=== PATIENT | male | born 1990 | race African-American/Black ===

== ENCOUNTER 2016-03-22 00:17 | Emergency (ER) | payer SELFPAY ==
[2016-03-22 00:26] VITALS: BP 156/79
--- NOTE | 2016-03-22 00:43 | ER Document Report ---
ED ENT - General Chief Complaint: Ear Pain Stated Complaint: EAR PAIN Time seen by provider: 00:43 Mode of Arrival: Ambulatory Information source: Patient Notes: 25-year-old male presents to ED for pain in his left ear after trying to clean his ear with a Q-tip. TRAVEL OUTSIDE OF THE [place] IN LAST 30 DAYS: No - HPI Patient complains to provider of: Ear problem Onset: Yesterday Onset/Duration: Sudden Quality of pain: Achy Severity: Mild Pain Level: 1 Location of pain: Ears Associated symptoms: Ear pain Similar symptoms previously: Yes Recently seen / treated by doctor: No - Related Data Allergies/Adverse Reactions: No Known Allergies Allergy (Verified 02/07/16 08:16) Past Medical History - General Information source: Patient - Social History Smoking Status: Current Every Day Smoker Cigarette use (# per day): Yes - 6 cigarettes a day Chew tobacco use (# tins/day): No Smoking Education Provided: Yes - less than a minute Frequency of alcohol use: Rare Drug Abuse: None Occupation: [employer] Lives with: Friend Family History: DM, Hypertension. denies: Arthritis, CAD, COPD, CVA, Hyperlipidemia, Malignancy, Thyroid Disfunction Patient has suicidal ideation: No Patient has homicidal ideation: No - Past Medical History Cardiac Medical History: Reports: None Pulmonary Medical History: Reports: Hx Asthma EENT Medical History: Reports: None Neurological Medical History: Reports: None Endocrine Medical History: Reports: None Renal/ Medical History: Reports: None Malignancy Medical History: Reports None GI Medical History: Reports: None Musculoskeltal Medical History: Reports None Skin Medical History: Reports None Psychiatric Medical History: Reports: None Traumatic Medical History: Reports: None Infectious Medical History: Reports: None Surgical Hx: Negative Past Surgical History: Reports: None - Immunizations Immunizations up to date: Yes Hx Diphtheria, Pertussis, Tetanus Vaccination: No Review of Systems - Review of Systems Constitutional: No symptoms reported EENT: Eye pain Cardiovascular: No symptoms reported Respiratory: No symptoms reported Gastrointestinal: No symptoms reported Genitourinary: No symptoms reported Male Genitourinary: No symptoms reported Musculoskeletal: No symptoms reported Skin: No symptoms reported Hematologic/Lymphatic: No symptoms reported Neurological/Psychological: No symptoms reported Physical Exam - Vital signs Vitals: Temp Pulse Resp BP Pulse Ox 98.8 F 67 16 156/79 H 97 03/22/16 00:25 03/22/16 00:25 03/22/16 00:25 03/22/16 00:25 03/22/16 00:25 Interpretation: Normal - General General appearance: Appears well, Alert - HEENT Head: Normocephalic, Atraumatic Eyes: Normal Pupils: PERRL Ears: Normal External canal: Cerumen impaction Tympanic membrane: Normal Sinus: Normal Nasal: Normal Mouth/Lips: Normal Mucous membranes: Normal Pharynx: Normal Neck: Normal - Respiratory Respiratory status: No respiratory distress Chest status: Nontender Breath sounds: Normal Chest palpation: Normal - Cardiovascular Rhythm: Regular Heart sounds: Normal auscultation Murmur: No - Abdominal Inspection: Normal Distension: No distension Bowel sounds: Normal Tenderness: Nontender Organomegaly: No organomegaly - Back Back: Normal, Nontender - Extremities General upper extremity: Normal inspection, Nontender, Normal color, Normal ROM , Normal temperature General lower extremity: Normal inspection, Nontender, Normal color, Normal ROM , Normal temperature, Normal weight bearing. No: Herson's sign - Neurological Neuro grossly intact: Yes Cognition: Normal Orientation: AAOx4 [place] Coma Scale Eye Opening: Spontaneous [place] Coma Scale Verbal: Oriented [place] Coma Scale Motor: Obeys Commands [place] Coma Scale Total: 15 Speech: Normal Motor strength normal: LUE, RUE, LLE, RLE Sensory: Normal - Psychological Associated symptoms: Normal affect, Normal mood - Skin Skin Temperature: Warm Skin Moisture: Dry Skin Color: Normal Course - Re-evaluation Re-evalutation: 03/22/16 00:47 Wax removed from left ear enough for him to be able to hear. Patient given instructions on removal of wax with peroxide and water. Patient provided was irritable syringe. Patient struck to follow-up with primary doctor for any further concerns or he may return to the emergency room. - Vital Signs Vital signs: Temp Pulse Resp BP Pulse Ox 98.8 F 67 16 156/79 H 97 03/22/16 00:25 03/22/16 00:25 03/22/16 00:25 03/22/16 00:25 03/22/16 00:25 Discharge - Discharge Clinical Impression: Impacted cerumen of left ear Condition: Stable Disposition: HOME, SELF-CARE Instructions: Family Physicians / Practices Additional Instructions: Cerumen Impaction The physician found a severe buildup of earwax in your ear canal, called a cerumen impaction. A large plug of wax can cause earache, decreased hearing, or itching. It can even lead to infection of the outer ear. An impaction of earwax can be removed by the physician using special instruments, or can be irrigated out using a stream of water (often a little of both is required). Some less severe impactions are removed using ear drops that dissolve wax. In the future, don't get soap in your ear canal. Soap doesn't remove wax - - it simply hardens it in place. Don't use cotton swabs. These just push the wax into large clumps, where it doesn't flow out normally. Dust and smoke also contribute to wax buildup. Earwax softening drops are available without prescription, and can be used periodically. Contact the doctor if you develop decreased hearing, earache, drainage from the ear, or severe headache. Mix half peroxide half water, use a bulb syringe fill ear canal with solution. Wait 15 minutes then flushed out with warm water. FOLLOW-UP CARE: If you have been referred to a physician for follow-up care, call the physician s office for an appointment as you were instructed or within the next two days. If you experience worsening or a significant change in your symptoms, notify the physician immediately or return to the Emergency Department at any time for re-evaluation. Forms: Elevated Blood Pressure, Smoking Cessation Education
== END 2016-03-22 00:50 | disposition home or self-care (01) ==
LOC: ER 00:17
DX: H61.22 Impacted cerumen, left ear (principal); H92.02 Otalgia, left ear; H57.10 Ocular pain, unspecified eye; F17.210 Nicotine dependence, cigarettes, uncomplicated; Z71.6 Tobacco abuse counseling
CPT/HCPCS: 99282

== ENCOUNTER 2016-03-22 11:33 | Emergency (ER) | payer SELFPAY ==
[2016-03-22] MEDS ORDERED: IBUPROFEN 800 MG TABLET PO ONE (11:38)
[2016-03-22 11:39] VITALS: BP 167/104
--- NOTE | 2016-03-22 11:39 | ER Document Report ---
ED Medical Screen (RME) - General Stated Complaint: FACE SWELLING Time seen by provider: 11:36 Mode of Arrival: Ambulatory Information source: Patient TRAVEL OUTSIDE OF THE [place] IN LAST 30 DAYS: No - HPI Patient complains to provider of: RIGHT FACIAL SWELLING Onset: Yesterday Onset/Duration: Sudden Context: HAS DENTAL PROBLEMS AND HAS NOT BEEN ABLE TO SEE DENTIST. Quality of pain: Throbbing Severity: Moderate Pain Level: 4 Associated Symptoms: None Exacerbated by: Food Relieved by: Denies Similar symptoms previously: Yes Recently seen / treated by doctor: No - Related Data Smoking: Cigarettes Frequency of alcohol use: None Drug Abuse: None Pertinent History: ASTHMA Allergies/Adverse Reactions: No Known Allergies Allergy (Verified 03/22/16 11:36) Past Medical History Pulmonary Medical History: Reports: Hx Asthma Renal/ Medical History: Denies: Hx Peritoneal Dialysis - Immunizations Immunizations up to date: Yes Hx Diphtheria, Pertussis, Tetanus Vaccination: No
--- NOTE | 2016-03-22 12:10 | ER Document Report ---
ED Oral Problem - General Chief Complaint: Toothache Stated Complaint: FACE SWELLING Time seen by provider: 12:05 Mode of Arrival: Ambulatory Information source: Patient Notes: This is a 25-year-old man with a history of dental caries who presents to the emergency room with swelling of the right lower jaw. Patient denies fever but does state his Pain in the area. He denies any difficulty swallowing or difficulty breathing. TRAVEL OUTSIDE OF THE [place] IN LAST 30 DAYS: No - HPI Patient complains to provider of: Swelling of jaw Onset: Last week Onset: Gradual Quality of pain: No pain Severity: None Pain Level: Denies Context: Fractured tooth Associated symptoms: denies: Cough, Earache, Fever Worsened by: Heat Similar symptoms previously: Yes Recently seen / treated by doctor/dentist: No - Related Data Allergies/Adverse Reactions: No Known Allergies Allergy (Verified 03/22/16 11:36) Past Medical History - General Information source: Patient - Social History Smoking Status: Current Every Day Smoker Chew tobacco use (# tins/day): No Frequency of alcohol use: None Drug Abuse: None Lives with: Family Family History: DM, Hypertension. denies: Arthritis, CAD, COPD, CVA, Hyperlipidemia, Malignancy, Thyroid Disfunction Patient has suicidal ideation: No Patient has homicidal ideation: No - Medical History Medical History: Negative Pulmonary Medical History: Reports: Hx Asthma Renal/ Medical History: Denies: Hx Peritoneal Dialysis Surgical Hx: Negative - Immunizations Immunizations up to date: Yes Hx Diphtheria, Pertussis, Tetanus Vaccination: No Review of Systems - Review of Systems Notes: Review of systems: Constitutional: Denies fever, chills. EENT: Positive for right lower teeth decay. Right mandibular swelling. Denies ear pain, sinus tenderness, throat pain, throat swelling. Cardiovascular: Denies chest pain, palpitations, dyspnea or edema. Respiratory: Denies wheezing, cough, hemoptysis. Abdomen: Denies abdominal pain, nausea, vomiting, diarrhea. Denies BRBPR or melena. Genitourinary: Denies dysuria, pyuria, hematuria, flank pain. Musculoskeletal: denies joint pain or swelling, denies back pain. Neurologic: Denies headache, photophobia, neck stiffness, weakness. Denies loss of bowel or bladder function. Denies saddle anesthesia. Skin: Denies rash, lesions. Physical Exam - Vital signs Vitals: Temp Pulse Resp BP Pulse Ox 97.5 F 59 L 16 167/104 H 97 03/22/16 11:38 03/22/16 11:38 03/22/16 11:38 03/22/16 11:38 03/22/16 11:38 Notes: Physical exam: GENERAL: 25-year-old man, alert and oriented 3, no acute distress. HEAD: Atraumatic, normocephalic. EYES: Pupils equal round and reactive to light, extraocular movements intact, sclera anicteric, conjunctiva are normal. ENT: TMs normal, nares patent, oropharynx clear without exudates. No trismus. He does have right lower dental caries with tenderness over the involved tooth. He does have some swelling over the right mandible. There is no trismus. Moist mucous membranes. No elevation of the tissues underneath the tongue. NECK: Normal range of motion, supple without lymphadenopathy, no stridor, no tenderness or induration or swelling in the submental spaces her around the neck. LUNGS: Breath sounds clear to auscultation bilaterally and equal. No wheezes rales or rhonchi. HEART: Regular rate and rhythm without murmurs, rubs or gallops. ABDOMEN: Soft, normoactive bowel sounds. No tenderness to palpation. No guarding, no rebound. No masses appreciated. EXTREMITIES: Normal range of motion, no pitting or edema. No clubbing or cyanosis. NEUROLOGICAL: Cranial nerves II through XII grossly intact. Normal speech, normal gait. PSYCH: Normal mood, normal affect. SKIN: Warm, Dry, normal turgor, no rashes or lesions noted. Course - Vital Signs Vital signs: Temp Pulse Resp BP Pulse Ox 97.5 F 59 L 16 167/104 H 97 03/22/16 11:38 03/22/16 11:38 03/22/16 11:38 03/22/16 11:38 03/22/16 11:38 Discharge - Discharge Clinical Impression: Dental caries Condition: Stable Disposition: HOME, SELF-CARE Instructions: Penicillin V K ([facility]), Oral Narcotic Medication ([facility]) Additional Instructions: Recommendations: Take the antibiotics as prescribed. Take the pain medicine as needed: This is a narcotic, see the narcotic instruction sheet. Don't drive or operate machinery while on this medicine. Additionally, he can make you constipated. Take ibuprofen every 6 hours for pain. Follow-up with a dentist: I left a number of dental care with reduced rates. Return to the emergency room for any difficulty swallowing, difficulty breathing or any concerns he getting worse. Prescriptions: Oxycodone HCl/Acetaminophen [Percocet 5-325 mg Tablet] 1 - 2 tab PO ASDIR PRN # 25 tablet PRN Reason: Penicillin V Potassium [Penicillin Vk 500 mg Tablet] 500 mg PO QID #28 tablet Forms: Return to Work
== END 2016-03-22 12:40 | disposition home or self-care (01) ==
LOC: ER 11:33
DX: K02.9 Dental caries, unspecified (principal); K08.89 Other specified disorders of teeth and supporting structures; R22.0 Localized swelling, mass and lump, head; F17.200 Nicotine dependence, unspecified, uncomplicated; J45.909 Unspecified asthma, uncomplicated
CPT/HCPCS: 99282

== ENCOUNTER 2016-10-06 22:02 | Emergency (ER) | payer SELFPAY ==
[2016-10-06 22:17] VITALS: BP 152/83
[2016-10-07] MEDS ORDERED: IBUPROFEN 600 MG TABLET PO ONE (00:11)
[2016-10-07] MEDS ORDERED: ACETAMINOPHEN 325 MG TABLET PO ONE (00:11)
[2016-10-07] MEDS ORDERED: LIDOCAINE 5% (700 MG) TRANSDERMAL ADH..PATCH TP ONE (00:11)
--- NOTE | 2016-10-07 00:13 | ER Document Report ---
ED General - General Chief Complaint: Back Pain Stated Complaint: BACK PAIN Time Seen by Provider: 10/06/16 23:09 Notes: Patient is a 25-year-old male with past medical history of morbid obesity who presents with 24 hours of right low back pain radiating into his right lower extremity. States this started yesterday without any known injury. He does have a history of similar episodes in the past. He has not tried anything to improve his symptoms. Notes movement worsens the pain. Does describe it as a dull, constant, throbbing pain to the right low back with a shooting, burning pain into the right lower extremity. He denies any bowel or bladder incontinence. No weakness or numbness. No fever. Denies any history of IV drug use. TRAVEL OUTSIDE OF THE [place] IN LAST 30 DAYS: No - Related Data Allergies/Adverse Reactions: No Known Allergies Allergy (Verified 03/22/16 11:36) Past Medical History - General Information source: Patient - Social History Smoking Status: Never Smoker Frequency of alcohol use: None Drug Abuse: None Family History: DM, Hypertension. denies: Arthritis, CAD, COPD, CVA, Hyperlipidemia, Malignancy, Thyroid Disfunction Patient has suicidal ideation: No Patient has homicidal ideation: No Pulmonary Medical History: Reports: Hx Asthma Renal/ Medical History: Denies: Hx Peritoneal Dialysis - Immunizations Immunizations up to date: Yes Hx Diphtheria, Pertussis, Tetanus Vaccination: No Review of Systems - Review of Systems Notes: Constitutional: Negative for fever. HENT: Negative for sore throat. Eyes: Negative for visual changes. Cardiovascular: Negative for chest pain. Respiratory: Negative for shortness of breath. Gastrointestinal: Negative for abdominal pain, vomiting or diarrhea. Genitourinary: Negative for dysuria. Musculoskeletal: Positive for back pain. Skin: Negative for rash. Neurological: Negative for headaches, weakness or numbness. 10 point ROS negative except as marked above and in HPI. Physical Exam - Vital signs Vitals: Temp Pulse Resp BP Pulse Ox 98.7 F 64 16 152/83 H 95 10/06/16 22:13 10/06/16 22:13 10/06/16 22:13 10/06/16 22:13 10/06/16 22:13 Interpretation: Hypertensive Notes: PHYSICAL EXAMINATION: GENERAL: Well-appearing, well-nourished and in no acute distress. HEAD: Atraumatic, normocephalic. EYES: Pupils equal round and reactive to light, extraocular movements intact, sclera anicteric, conjunctiva are normal. ENT: nares patent, oropharynx clear without exudates. Moist mucous membranes. NECK: Normal range of motion, supple without lymphadenopathy LUNGS: Breath sounds clear to auscultation bilaterally and equal. No wheezes rales or rhonchi. HEART: Regular rate and rhythm without murmurs ABDOMEN: Soft, nontender, normoactive bowel sounds. No guarding, no rebound. No masses appreciated. EXTREMITIES: Normal range of motion, no pitting or edema. No cyanosis. Positive right straight leg test Back: No midline spinal tenderness, step-offs or deformities. Pain on palpation of the margy-lumbar spinal region on the right low area. NEUROLOGICAL: 5 out of 5 strength both distally and proximally bilateral lower extremities. 2+ patellar reflexes bilaterally. No clonus. Sensation grossly intact in the bilateral lower extremities. Patient is able to ambulate without difficulty. PSYCH: Normal mood, normal affect. SKIN: Warm, Dry, normal turgor, no rashes or lesions noted. Course - Re-evaluation Re-evalutation: 10/07/16 00:11 Presentation of a well appearing patient complaining of acute on chronic back pain. No rapid progression of symptoms, systemic symptoms including fevers, chills, weight loss, history of recent bacterial infection, bilateral symptoms, numbness, weakness, difficulty walking, urinary retention or bowel incontinence , personal history of cancer, immunosuppression, diabetes, known AAA, or history of IV drug use. Exam is without point tenderness over vertebral bodies , pulsatile abdominal mass, and patient has symmetric and intact lower extremity strength, sensation, and reflexes without clonus. 2+ symmetric medial malleolar and dorsalis pedis pulses Based on history and physical, I have a very low suspicion of a concerning etiology of pain including epidural compression syndrome, spinal infection, transverse myelitis, malignancy, abdominal aortic aneurysm, renal colic, acute lower extremity claudication, neurogenic claudication, ankylosing spondylitis, or other intra-abdominal process. Due to absence of concerning risk factors in history and physical as well as absence of rapidly progressive, severe, or bilateral symptoms, will defer imaging at this point. Plan to manage conservatively with outpatient analgesia, analgesia, and physical therapy. - Acetaminophen 650 q 4 + ibuprofen 600 q 6 - Continue normal daily activities as tolerated by pain - Provide with standard musculoskeletal back pain exercise instructions - Instruct to follow up with primary care provider if symptoms not improving - Provide careful return precautions and concerning symptoms to watch for. - Vital Signs Vital signs: Temp Pulse Resp BP Pulse Ox 98.7 F 64 16 152/83 H 95 10/06/16 22:13 10/06/16 22:13 10/06/16 22:13 10/06/16 22:13 10/06/16 22:13 Discharge - Discharge Clinical Impression: Right low back pain Qualifiers: Chronicity: acute Sciatica presence: with sciatica Sciatica laterality: sciatica of right side Qualified Code(s): M54.41 - Lumbago with sciatica, right side Condition: Good Disposition: HOME, SELF-CARE Additional Instructions: You have been seen in the Emergency Department (ED) today for back pain. Your workup and exam have not shown any acute abnormalities and you are likely suffering from muscle strain or possible problems with your discs, but there is no treatment that will fix your symptoms at this time. For your pain: Take ibuprofen 600 mg and acetaminophen 1000 mg every 6 hours together as needed for pain. You should also purchase a local lidocaine cream such as "aspercreme with lidocaine" and use per bottle instructions to the affected area. Apply heat to the area as often as you are able. Continue to keep active and avoid prolonged periods of bed rest. Please follow up with your doctor as soon as possible regarding today's ED visit and your back pain. Return to the ED for worsening back pain, fever, weakness or numbness of either leg, or if you develop either (1) an inability to urinate or have bowel movements, or (2) loss of your ability to control your bathroom functions (if you start having "accidents"), or if you develop other new symptoms that concern you.concern you. Forms: Return to Work
== END 2016-10-07 00:33 | disposition home or self-care (01) ==
LOC: ER 22:02
DX: M54.41 Lumbago with sciatica, right side (principal); G89.29 Other chronic pain; E66.01 Morbid (severe) obesity due to excess calories; J45.909 Unspecified asthma, uncomplicated
CPT/HCPCS: 99283

== ENCOUNTER 2017-07-17 14:20 | Emergency (ER) | payer OTHER ==
[2017-07-17 14:29] VITALS: BP 163/86
[2017-07-17] MEDS ORDERED: IBUPROFEN 800 MG TABLET PO ONE (14:35)
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
== END 2017-07-17 15:30 | disposition home or self-care (01) ==
LOC: ER 14:20
DX: S39.012A Strain of muscle, fascia and tendon of lower back, initial encounter (principal); S53.401A Unspecified sprain of right elbow, initial encounter; M25.521 Pain in right elbow; M54.9 Dorsalgia, unspecified; V87.7XXA Person injured in collision between other specified motor vehicles (traffic), initial encounter; F17.200 Nicotine dependence, unspecified, uncomplicated
CPT/HCPCS: 99283

== ENCOUNTER 2017-10-05 05:58 | Emergency (ER) | payer OTHER ==
[2017-10-05] MEDS ORDERED: METHYLPREDNISOLONE INJ 125 MG/2 ML SDV IV ONE (06:55)
[2017-10-05] MEDS ORDERED: IPRATROPIUM/ALBUTEROL 0.5-2.5 MG/3 ML AMPUL NEB ONE (06:55)
--- NOTE | 2017-10-05 07:40 | RADIOLOGY REPORT (SQ) ---
EXAM DESCRIPTION: CHEST 2 VIEWS COMPLETED DATE/TIME: 10/05/2017 7:25 am REASON FOR STUDY: sob COMPARISON: Two-view chest 09/22/2015 EXAM PARAMETERS: NUMBER OF VIEWS: two views TECHNIQUE: Digital Frontal and Lateral radiographic views of the chest acquired. RADIATION DOSE: NA LIMITATIONS: none FINDINGS: LUNGS AND PLEURA: No opacities, masses or pneumothorax. No pleural effusion. MEDIASTINUM AND HILAR STRUCTURES: No masses or contour abnormalities. HEART AND VASCULAR STRUCTURES: Heart normal size. No evidence for failure. BONES: No acute findings. HARDWARE: None in the chest. OTHER: No other significant finding. IMPRESSION: NO ACUTE RADIOGRAPHIC FINDING IN THE CHEST. TECHNICAL DOCUMENTATION: JOB ID: [id number] [email or web address]- All Rights Reserved Reading location - IP/workstation name: [email or web address]
[2017-10-05 09:11] LABS: ABSOLUTE BASOPHILS # (AUTO) 0.1 10^3/uL (0.0-0.2); ABSOLUTE EOSINOPHILS # (AUTO) 0.2 10^3/uL (0.0-0.6); ABSOLUTE LYMPHOCYTES (AUTO) 1.7 10^3/uL (0.5-4.7); ABSOLUTE MONOCYTES (AUTO) 0.9 10^3/uL (0.1-1.4); ABSOLUTE NEUT (AUTO) 7.9 10^3/uL (1.7-8.2); ARTERIAL BLOOD BASE EXCESS 0.9 mmol/L; ARTERIAL BLOOD H2CO3 1.49 mmol/L (1.05-1.35); ARTERIAL BLOOD HCO3 27.2 mmol/L (20-26); ARTERIAL BLOOD O2 SATURATION 95.6 % (94-98); ARTERIAL BLOOD PCO2 49.5 mmHg (35-45); ARTERIAL BLOOD PH 7.36 (7.35-7.45); ARTERIAL BLOOD PO2 82.6 mmHg (80-100); ARTERIAL BLOOD TOTAL CO2 28.7 mmol/L (23-27); BASOPHILS % (AUTO) 0.8 % (0-2); HEMATOCRIT 43.2 % (37.9-51.0); HEMOGLOBIN 14.6 g/dL (13.5-17.0); LYMPHOCYTES % (AUTO) 15.5 % (13-45); MEAN CORPUSCULAR HEMOGLOBIN 28.3 pg (27.0-33.4); MEAN CORPUSCULAR HGB CONC 33.7 g/dL (32.0-36.0); MEAN CORPUSCULAR VOLUME 84 fl (80-97); MONOCYTES % (AUTO) 8.4 % (3-13); PLATELET COUNT 343 10^3/uL (150-450); RED BLOOD COUNT 5.15 10^6/uL (4.35-5.55); RED CELL DISTRIBUTION WIDTH 15.1 % (11.5-14.0); SEGMENTED NEUTROPHILS % (AUTO) 73.3 % (42-78); TOTAL CELLS COUNTED % (AUTO) 100 %; WHITE BLOOD COUNT 10.8 10^3/uL (4.0-10.5)
[2017-10-05 09:12] LABS: ARTERIAL BLOOD FIO2 ROOM AIR
[2017-10-05 09:34] LABS: ALANINE AMINOTRANSFERASE 38 U/L (21-72); ALBUMIN 4.1 g/dL (3.5-5.0); ALKALINE PHOSPHATASE 125 U/L (38-126); ANION GAP 14 (5-19); ASPARTATE AMINO TRANSFERASE 20 U/L (17-59); BILIRUBIN,DIRECT 0.2 mg/dL (0.0-0.4); BILIRUBIN,TOTAL 0.2 mg/dL (0.2-1.3); BLOOD UREA NITROGEN 8 mg/dL (7-20); CARBON DIOXIDE 28 mmol/L (22-30); CHLORIDE 102 mmol/L (98-107); GLUCOSE 86 mg/dL (75-110); POTASSIUM 4.2 mmol/L (3.6-5.0); SODIUM 143.7 mmol/L (137-145); TOTAL PROTEIN 7.1 g/dL (6.3-8.2)
[2017-10-05] MEDS ORDERED: AMOXICILLIN TR/POT CLAVULANATE 500-125 MG TAB PO ONE (11:27)
--- NOTE | 2017-10-05 11:27 | ER Document Report ---
ED Respiratory Problem - General Chief Complaint: Shortness Of Breath Stated Complaint: BREATHING TROUBLE Time Seen by Provider: 10/05/17 06:50 Mode of Arrival: Ambulatory Information source: Patient TRAVEL OUTSIDE OF THE [place] IN LAST 30 DAYS: No - HPI Patient complains to provider of: Asthma Onset: This morning Duration: Continuous Initiating Event: Exposure to smoke Quality of pain: No pain Severity: None Pain Level: 0 Context: Smoker Cough: Nonproductive Sputum amount: None Similar symptoms previously: No Recently seen / treated by doctor: No - Related Data Allergies/Adverse Reactions: No Known Allergies Allergy (Verified 10/05/17 06:38) Past Medical History - Social History Smoking Status: Current Every Day Smoker Family History: DM, Hypertension. denies: Arthritis, CAD, COPD, CVA, Hyperlipidemia, Malignancy, Thyroid Disfunction Patient has suicidal ideation: No Patient has homicidal ideation: No Pulmonary Medical History: Reports: Hx Asthma Renal/ Medical History: Denies: Hx Peritoneal Dialysis - Immunizations Immunizations up to date: Yes Hx Diphtheria, Pertussis, Tetanus Vaccination: No Review of Systems - Review of Systems Constitutional: denies: Chills, Fever EENT: No symptoms reported Cardiovascular: denies: Chest pain, Palpitations Respiratory: Cough, Short of breath, Wheezing. denies: Hurts to breathe, Sputum Gastrointestinal: No symptoms reported Genitourinary: No symptoms reported Male Genitourinary: No symptoms reported Musculoskeletal: No symptoms reported Skin: No symptoms reported Hematologic/Lymphatic: No symptoms reported Neurological/Psychological: No symptoms reported -: Yes All other systems reviewed and negative Physical Exam - Vital signs Vitals: Temp Pulse Resp BP Pulse Ox 98.4 F 71 18 164/97 H 98 10/05/17 06:06 10/05/17 06:06 10/05/17 06:06 10/05/17 06:06 10/05/17 06:06 - General General appearance: Appears well, Alert In distress: Mild - HEENT Head: Normocephalic, Atraumatic Eyes: Normal Pupils: PERRL - Respiratory Respiratory status: Respiratory distress. No: Retractions Chest status: Nontender Breath sounds: Wheezing Chest palpation: Normal - Cardiovascular Rhythm: Regular Heart sounds: Normal auscultation Murmur: No - Abdominal Inspection: Normal Distension: No distension Bowel sounds: Normal Tenderness: Nontender Organomegaly: No organomegaly - Back Back: Normal, Nontender - Extremities General upper extremity: Normal inspection, Nontender, Normal color, Normal ROM , Normal temperature General lower extremity: Normal inspection, Nontender, Normal color, Normal ROM , Normal temperature, Normal weight bearing. No: Herson's sign - Neurological Neuro grossly intact: Yes Cognition: Normal Orientation: AAOx4 Arturo Coma Scale Eye Opening: Spontaneous Arturo Coma Scale Verbal: Oriented Rufe Coma Scale Motor: Obeys Commands Arturo Coma Scale Total: 15 Speech: Normal Motor strength normal: LUE, RUE, LLE, RLE Sensory: Normal - Psychological Associated symptoms: Normal affect, Normal mood - Skin Skin Temperature: Warm Skin Moisture: Dry Skin Color: Normal Course - Re-evaluation Re-evalutation: 10/05/17 15:49 Patient felt much better after receiving treatment in the emergency room. He wants to be discharged home. - Vital Signs Vital signs: Temp Pulse Resp BP Pulse Ox 98.1 F 71 15 140/74 H 98 10/05/17 12:13 10/05/17 06:06 10/05/17 12:01 10/05/17 12:01 10/05/17 12:01 - Laboratory Result Diagrams: 10/05/17 08:35 10/05/17 08:35 Laboratory results interpreted by me: 10/05/17 10/05/17 08:35 08:35 WBC 10.8 H RDW 15.1 H Carbonic Acid 1.49 H ABG pCO2 49.5 H ABG HCO3 27.2 H ABG Total CO2 28.7 H Discharge - Discharge Clinical Impression: Asthma Qualifiers: Asthma severity: mild Asthma persistence: intermittent Asthma complication type : with acute exacerbation Qualified Code(s): J45.21 - Mild intermittent asthma with (acute) exacerbation Asthma attack Qualifiers: Asthma severity: mild Asthma persistence: intermittent Qualified Code(s): J45.21 - Mild intermittent asthma with (acute) exacerbation Condition: Stable Disposition: HOME, SELF-CARE Instructions: Asthma ([facility]) Additional Instructions: Please follow-up with the [employer] Senior Project Manager Dr Lechuga today. Return to the emergency room if condition worsens. Prescriptions: Albuterol Sulfate [Proair HFA Inhalation Aerosol 8.5 gm MDI] 2 puff IH Q4H PRN # 1 mdi PRN Reason: Amox Tr/Potassium Clavulanate [Augmentin 875-125 Tablet] 1 tab PO BID 10 Days tablet Prednisone [Deltasone 20 mg Tablet] 3 tab PO DAILY 5 Days tablet Forms: Return to Work Referrals: ALYSA LECHUGA MD [ACTIVE STAFF] - Follow up as needed
[2017-10-05 12:03] VITALS: BP 140/74
== END 2017-10-05 12:19 | disposition home or self-care (01) ==
LOC: ER 05:58
DX: J45.21 Mild intermittent asthma with (acute) exacerbation (principal); R06.02 Shortness of breath; F17.200 Nicotine dependence, unspecified, uncomplicated; R05 Cough
CPT/HCPCS: 94640; 99285; 96374; 36415; 82803; 85025; 80053; 71046; J2930; J7620

== ENCOUNTER 2018-02-04 13:14 | Emergency (ER) | payer SELFPAY ==
[2018-02-04] MEDS ORDERED: OXYCODONE-ACETAMINOPHEN 5-325 MG TABLET PO ONE (13:43)
[2018-02-04] MEDS ORDERED: PREDNISONE 20 MG TABLET PO ONE (13:43)
--- NOTE | 2018-02-04 13:44 | ER Document Report ---
ED Medical Screen (RME) - General TRAVEL OUTSIDE OF THE [place] IN LAST 30 DAYS: No <MARY BETH SANCHEZ - Last Filed: 02/04/18 13:43> <JASMIN SIMON - Last Filed: 02/04/18 15:36> - General Chief Complaint: Cold Symptoms Stated Complaint: CHEST PAIN Time Seen by Provider: 02/04/18 13:37 Notes: 27-year-old male patient with sore throat cough for the past 3 days. He has yellow productive cough and some chills. He reports some chest pain when he coughs. Brief exam shows TMs mostly occluded with wax. Throat shows beefy red inflamed swollen tonsils with exudate, without much uvula edema and no peritonsillar swelling. There is tenderness to palpate the anterior cervical gl ands mostly on the right side states that he has pain trying to turn his neck to the right. Lungs are clear. Blood pressure is elevated at triage, he will be rechecked later. At this time will check for strep and mono, give him oral steroids and pain medication. I have greeted and performed a rapid initial assessment of this patient. A comprehensive ED assessment and evaluation of the patient, analysis of test results and completion of the medical decision making process will be conducted by additional ED providers. (MARY BETH SANCHEZ) - Related Data Allergies/Adverse Reactions: No Known Allergies Allergy (Verified 10/05/17 06:38) Past Medical History - Social History Frequency of alcohol use: None Drug Abuse: None Pulmonary Medical History: Reports: Hx Asthma Renal/ Medical History: Denies: Hx Peritoneal Dialysis - Immunizations Immunizations up to date: Yes Hx Diphtheria, Pertussis, Tetanus Vaccination: No <MARY BETH SANCHEZ - Last Filed: 02/04/18 13:43> - Vital signs Vitals: Temp Pulse Resp BP Pulse Ox 97.9 F 64 18 175/94 H 96 02/04/18 13:25 02/04/18 13:25 02/04/18 13:25 02/04/18 13:25 02/04/18 13:25 Course - Laboratory Result Diagrams: 02/04/18 14:05 02/04/18 14:05 <JASMIN SIMON - Last Filed: 02/04/18 15:36> - Vital Signs Vital signs: Temp Pulse Resp BP Pulse Ox 97.9 F 64 18 175/94 H 96 02/04/18 13:25 02/04/18 13:25 02/04/18 13:25 02/04/18 13:25 02/04/18 13:25 - Laboratory Laboratory results interpreted by me: 02/04/18 14:05 WBC 11.4 H RDW 15.1 H Doctor's Discharge <MARY BETH SANCHEZ - Last Filed: 02/04/18 13:43> <JASMIN SIMON - Last Filed: 02/04/18 15:36> - Discharge Clinical Impression: Viral illness Condition: Good Disposition: HOME, SELF-CARE Instructions: Viral Syndrome ([facility]) Forms: Parent Work Note Referrals: LEXUS GREGG MD [ACTIVE STAFF] - Follow up as needed
--- NOTE | 2018-02-04 14:17 | ER Document Report ---
ED General - General Chief Complaint: Cold Symptoms Stated Complaint: CHEST PAIN Time Seen by Provider: 02/04/18 13:37 Notes: 27-year-old male presents emergency department with 3-day history of nasal congestion, sore throat, non-productive cough, chills. Patient denies fever, shortness of breath. Patient states that when he coughs he has some chest pain with it. Patient denies a history of sick contacts. He has not followed up with his primary care physician for his symptoms. He has not tried any agfe-bau-suvphps medication for symptom relief. No alleviating or exacerbating factors. TRAVEL OUTSIDE OF THE [place] IN LAST 30 DAYS: No - HPI Onset: Other - 3 days Onset/Duration: Gradual Quality of pain: Achy Severity: Mild Associated symptoms: Chills, Nonproductive cough, Headache, Rhinnorhea, Sore throat Exacerbated by: Denies Relieved by: Denies Similar symptoms previously: Yes Recently seen / treated by doctor: No - Related Data Allergies/Adverse Reactions: No Known Allergies Allergy (Verified 10/05/17 06:38) Past Medical History - General Information source: Patient - Social History Smoking Status: Current Every Day Smoker Frequency of alcohol use: None Drug Abuse: None Family History: DM, Hypertension. denies: Arthritis, CAD, COPD, CVA, Hyperlipidemia, Malignancy, Thyroid Disfunction Patient has suicidal ideation: No Patient has homicidal ideation: No Pulmonary Medical History: Reports: Hx Asthma Renal/ Medical History: Denies: Hx Peritoneal Dialysis - Immunizations Immunizations up to date: Yes Hx Diphtheria, Pertussis, Tetanus Vaccination: No Review of Systems - Review of Systems Constitutional: Chills EENT: Nose congestion, Throat pain Cardiovascular: Chest pain Respiratory: Cough Gastrointestinal: No symptoms reported Genitourinary: No symptoms reported Male Genitourinary: No symptoms reported Musculoskeletal: No symptoms reported Skin: No symptoms reported Hematologic/Lymphatic: No symptoms reported Neurological/Psychological: No symptoms reported -: Yes All other systems reviewed and negative Physical Exam - Vital signs Vitals: Temp Pulse Resp BP Pulse Ox 97.9 F 64 18 175/94 H 96 02/04/18 13:25 02/04/18 13:25 02/04/18 13:25 02/04/18 13:25 02/04/18 13:25 - Notes Notes: PHYSICAL EXAMINATION: GENERAL: Well-appearing, well-nourished and in no acute distress. HEAD: Atraumatic, normocephalic. EYES: Pupils equal round and reactive to light, extraocular movements intact, sclera anicteric, conjunctiva are normal. ENT: Nares patent, Tonsils erythematous with exudate. No tonsilar deviation. No peritonsillar fullness. Moist mucous membranes. NECK: Normal range of motion, supple. Anterior cervical adenopathy. LUNGS: Breath sounds clear to auscultation bilaterally and equal. No wheezes rales or rhonchi. HEART: Regular rate and rhythm without murmurs ABDOMEN: Soft, nontender, nondistended abdomen. No guarding, no rebound. No masses appreciated. Musculoskeletal: Normal range of motion, no pitting or edema. No cyanosis. NEUROLOGICAL: Cranial nerves grossly intact. Normal speech, normal gait. Normal sensory, motor exams PSYCH: Normal mood, normal affect. SKIN: Warm, Dry, normal turgor, no rashes or lesions noted. Course - Re-evaluation Re-evalutation: 02/04/18 14:17 EKG: Ventricular rate 66, OK interval 188, QRS duration 88, QTc 390, normal sin us rhythm, no ST segment elevation. 02/04/18 15:32 Labs obtained. No acute process identified. Both mono and strep are negative. Patient declined a chest x-ray. EKG was normal. I discussed the results with the patient. I told him he likely has a viral illness. I will discharge him home. Patient instructed to take [id number] medication as needed for symptom relief, to follow-up with his primary care physician this week, and to return for any worsening symptoms. Patient is agreeable to plan of care. - Vital Signs Vital signs: Temp Pulse Resp BP Pulse Ox 97.9 F 64 18 175/94 H 96 02/04/18 13:25 02/04/18 13:25 02/04/18 13:25 02/04/18 13:25 02/04/18 13:25 - Laboratory Result Diagrams: 02/04/18 14:05 02/04/18 14:05 Laboratory results interpreted by me: 02/04/18 14:05 WBC 11.4 H RDW 15.1 H Discharge - Discharge Clinical Impression: Viral illness Condition: Good Disposition: HOME, SELF-CARE Instructions: Viral Syndrome ([facility]) Referrals: LEXUS GREGG MD [ACTIVE STAFF] - Follow up as needed
[2018-02-04 14:22] LABS: ABSOLUTE BASOPHILS # (AUTO) 0.1 10^3/uL (0.0-0.2); ABSOLUTE EOSINOPHILS # (AUTO) 0.1 10^3/uL (0.0-0.6); ABSOLUTE LYMPHOCYTES (AUTO) 2.4 10^3/uL (0.5-4.7); ABSOLUTE MONOCYTES (AUTO) 0.9 10^3/uL (0.1-1.4); ABSOLUTE NEUT (AUTO) 7.8 10^3/uL (1.7-8.2); HEMATOCRIT 44.3 % (37.9-51.0); HEMOGLOBIN 15.6 g/dL (13.5-17.0); LYMPHOCYTES % (AUTO) 21.2 % (13-45); MEAN CORPUSCULAR HEMOGLOBIN 28.8 pg (27.0-33.4); MEAN CORPUSCULAR HGB CONC 35.2 g/dL (32.0-36.0); MEAN CORPUSCULAR VOLUME 82 fl (80-97); PLATELET COUNT 352 10^3/uL (150-450); RED BLOOD COUNT 5.41 10^6/uL (4.35-5.55); RED CELL DISTRIBUTION WIDTH 15.1 % (11.5-14.0); SEGMENTED NEUTROPHILS % (AUTO) 68.8 % (42-78); TOTAL CELLS COUNTED % (AUTO) 100 %; WHITE BLOOD COUNT 11.4 10^3/uL (4.0-10.5)
[2018-02-04 14:34] LABS: ALANINE AMINOTRANSFERASE 22 U/L (21-72); ALBUMIN 4.6 g/dL (3.5-5.0); ALKALINE PHOSPHATASE 83 U/L (38-126); ANION GAP 13 (5-19); ASPARTATE AMINO TRANSFERASE 18 U/L (17-59); BILIRUBIN,DIRECT 0.2 mg/dL (0.0-0.4); BILIRUBIN,TOTAL 0.5 mg/dL (0.2-1.3); BLOOD UREA NITROGEN 10 mg/dL (7-20); CALCIUM 9.8 mg/dL (8.4-10.2); CARBON DIOXIDE 26 mmol/L (22-30); CHLORIDE 102 mmol/L (98-107); GLUCOSE 86 mg/dL (75-110); POTASSIUM 4.4 mmol/L (3.6-5.0); SODIUM 140.5 mmol/L (137-145); TOTAL PROTEIN 7.9 g/dL (6.3-8.2)
[2018-02-04 15:43] VITALS: BP 165/85
--- NOTE | 2018-02-04 18:14 | EKG REPORT ---
SEVERITY:- NORMAL ECG - SINUS RHYTHM : Confirmed by: Akin Prescott MD 04-Feb-2018 18:13:39
== END 2018-02-04 15:43 | disposition home or self-care (01) ==
LOC: ER 13:14
DX: B34.9 Viral infection, unspecified (principal); R07.9 Chest pain, unspecified; R09.81 Nasal congestion; R51 Headache
CPT/HCPCS: 93005; 99284; 36415; 87070; 87880; 85025; 87077; 86308; 80053; 93010; J7512

== ENCOUNTER 2018-03-11 10:18 | Emergency (ER) | payer SELFPAY ==
[2018-03-11 10:26] VITALS: BP 155/95
[2018-03-11] MEDS ORDERED: CEFTRIAXONE INJ 250 MG VIAL IM ONE (10:42)
[2018-03-11] MEDS ORDERED: LIDOCAINE 1% INJ-PF (10 MG/ML) 30 ML SDV IM ONE (10:42)
[2018-03-11] MEDS ORDERED: AZITHROMYCIN 250 MG TABLET PO ONE (10:43)
--- NOTE | 2018-03-11 10:45 | ER Document Report ---
HPI - HPI Time Seen by Provider: 03/11/18 10:28 Pain Level: 3 Notes: Patient is a 27-year-old male who presents with chief complaint of burning pain in his penis and yellowish green drainage that started on Thursday. Patient reports he had intercourse recently with a new partner. Reports remote history of asthma. - CONSTITUTIONAL Constitutional: DENIES: Fever, Chills Past Medical History - General Information source: Patient - Social History Smoking Status: Never Smoker Chew tobacco use (# tins/day): No Frequency of alcohol use: None Drug Abuse: None Family History: DM, Hypertension. denies: Arthritis, CAD, COPD, CVA, Hyperlipidemia, Malignancy, Thyroid Disfunction Patient has suicidal ideation: No Patient has homicidal ideation: No Pulmonary Medical History: Reports: Hx Asthma Renal/ Medical History: Denies: Hx Peritoneal Dialysis - Immunizations Immunizations up to date: Yes Hx Diphtheria, Pertussis, Tetanus Vaccination: No Vertical Provider Document - CONSTITUTIONAL Notes: PHYSICAL EXAMINATION: GENERAL: Well-appearing, well-nourished and in no acute distress. HEAD: Atraumatic, normocephalic. EYES: Pupils equal round extraocular movements intact, conjunctiva are normal. ENT: Nares patent NECK: Normal range of motion LUNGS: No respiratory distress Musculoskeletal: Normal range of motion NEUROLOGICAL: Normal speech, normal gait. PSYCH: Normal mood, normal affect. SKIN: Warm, Dry, normal turgor, no rashes or lesions noted. - INFECTION CONTROL TRAVEL OUTSIDE OF THE [place] IN LAST 30 DAYS: No Course - Re-evaluation Re-evalutation: Urine sent for GC/chlamydia testing. Patient treated with azithromycin PO and Rocephin IM. Educated patient to withhold from having any sexual intercourse that is unprotected for 7-10 days. - Vital Signs Vital signs: Temp Pulse Resp BP Pulse Ox 98.2 F 71 16 155/95 H 96 03/11/18 10:23 03/11/18 10:23 03/11/18 10:23 03/11/18 10:23 03/11/18 10:23 Discharge - Discharge Clinical Impression: Possible exposure to STD Condition: Stable Disposition: HOME, SELF-CARE Additional Instructions: You were treated today for possible exposure to chlamydia and/or gonorrhea. The treatment that we gave you was a one-time treatment. Please refrain from unprotected intercourse for at least 7 days. The infection should be cleared by then. You should notify any partners so that they can go to the health department to be tested.
[2018-03-11 12:45] LABS: CHLAM PCR NOT DETECTED (NOT DETECT); GON PCR DETECTED (NOT DETECT)
== END 2018-03-11 11:05 | disposition home or self-care (01) ==
LOC: ER 10:18
DX: R36.9 Urethral discharge, unspecified (principal); Z20.2 Contact with and (suspected) exposure to infections with a predominantly sexual mode of transmission
CPT/HCPCS: 99283; 96372; 87491; 87591; J3490; J0696

== ENCOUNTER 2019-08-25 13:11 | Emergency (ER) | payer SELFPAY ==
[2019-08-25 13:21] VITALS: BP 163/97
--- NOTE | 2019-08-25 13:32 | ER Document Report ---
HPI - HPI Time Seen by Provider: 08/25/19 13:28 Notes: CHIEF COMPLAINT: Decreased hearing right ear for several weeks HPI: 28-year-old male presenting for decreased hearing in the right ear now partially in the left ear over the last several weeks. He is concerned he might have wax buildup. [place] states it was 2 to 3 weeks ago. No fever cough or cold symptoms ROS: See HPI - all other systems were reviewed and are otherwise negative Constitutional: no fever Eyes: no drainage, no blurred vision ENT: no runny nose, no sore throat, right ear discomfort Cardiovascular: no chest pain Resp: no SOB, no cough Integumentary: no rash Allergy: no hives MEDICATIONS: I agree with the patient medications as charted by the RN. ALLERGIES: I agree with the allergies as charted by the RN. PAST MEDICAL HISTORY/PAST SURGICAL HISTORY: Reviewed and agree as charted by RN. SOCIAL HISTORY: Reviewed and agree as charted by RN. FAMILY HISTORY: No significant familial comorbid conditions directly related to patient complaint EXAM: Reviewed vital signs as charted by RN. CONSTITUTIONAL: Alert and oriented and responds appropriately to questions. Well-appearing; well-nourished HEAD: Normocephalic; atraumatic EYES: PERRL; Conjunctivae clear, sclerae non-icteric ENT: normal nose; no rhinorrhea; moist mucous membranes; pharynx without lesions noted, no uvula edema or deviation, no tonsillar hypertrophy, phonation normal. Bilateral tympanic membranes are pearly escalante there is slight edema with discharge in the right auditory canal. Slight cerumen in the left auditory canal NECK: Supple without meningismus; non-tender; no cervical lymphadenopathy, no ma sses CARD: Capillary refill less than 3 seconds; symmetric distal pulses RESP: Normal chest excursion without splinting or tachypnea ABD/GI: non-distended. BACK: The back appears normal EXT: Normal ROM in all joints; no cyanosis, no effusions, no edema SKIN: Normal color for age and race; warm; dry; good turgor NEURO: Moves all extremities equally; Motor and sensory function intact PSYCH: The patient's mood and manner are appropriate. Grooming and personal hygiene are appropriate. MDM: 28-year-old male with right otitis externa. Will write patient for Cortisporin drops follow-up with primary care for reevaluation Past Medical History - Social History Smoking Status: Unknown if Ever Smoked Family History: DM, Hypertension. denies: Arthritis, CAD, COPD, CVA, Hyperlipidemia, Malignancy, Thyroid Disfunction Pulmonary Medical History: Reports: Hx Asthma Renal/ Medical History: Denies: Hx Peritoneal Dialysis - Immunizations Immunizations up to date: Yes Hx Diphtheria, Pertussis, Tetanus Vaccination: No Vertical Provider Document - INFECTION CONTROL TRAVEL OUTSIDE OF THE [place] IN LAST 30 DAYS: No Course - Vital Signs Vital signs: Temp Pulse Resp BP Pulse Ox 98.6 F 75 17 163/97 H 97 08/25/19 13:20 08/25/19 13:20 08/25/19 13:20 08/25/19 13:20 08/25/19 13:20 Discharge - Discharge Clinical Impression: Otitis externa of right ear Qualifiers: Otitis externa type: swimmer's ear Chronicity: acute Qualified Code(s): H60.331 - Swimmer's ear, right ear Condition: Stable Disposition: HOME, SELF-CARE Additional Instructions: Eardrops as prescribed. Follow-up with a primary care provider for reevaluation of your symptoms in the next 4 5 days if symptoms have not improved call for appointment Prescriptions: Neomy Sulf/Polymyx B Sulf/Hc [Cortisporin Otic Susp] 4 drop AU TID 7 Days #1 bottle Referrals: [place] ANAND MD [ACTIVE STAFF] - Follow up as needed
== END 2019-08-25 13:36 | disposition home or self-care (01) ==
LOC: ER 13:11
DX: H60.331 Swimmer's ear, right ear (principal); H61.22 Impacted cerumen, left ear; J45.909 Unspecified asthma, uncomplicated
CPT/HCPCS: 99282